=== PATIENT | female | born 1975 | race Caucasian/White ===

== ENCOUNTER → 2018-02-23 | Outpatient (CLI) | payer OTHER ==
[~2018-02-23] MED LIST: ETON68IM SQ; ONDA8TAB98 PO
--- NOTE | 2018-02-26 09:01 | RADIOLOGY IMAGING REPORT ---
FACILITY: [facility] [place] PATIENT NAME: OLAMIDE MCCLURE : [id number] MR: [id number] V: [id number] EXAM DATE: [id number] ORDERING PHYSICIAN: TUNG KENNEY TECHNOLOGIST: Johanny Giordano PROCEDURE:BILATERAL DIGITAL SCREENING MAMMOGRAM WITH CAD ASSISTED INTERPRETATION & 3D TOMOSYNTHESIS COMPARISON:Prior mammograms 08/24/16, 08/17/15. INDICATIONS:SCREENING FINDINGS: Moderately dense heterogeneous fibroglandular tissue is seen throughout the breasts. The parenchymal pattern has remained stable allowing for difference in mammographic technique & patient positioning. There is no evidence of malignant appearing mass, malignant appearing calcifications or other secondary sign of malignancy in either breast. Scattered round calcifications throughout both breasts have remained stable. DIAGNOSTIC CATEGORY 2--BENIGN FINDING. RECOMMENDATIONS: ROUTINE MAMMOGRAM AND CLINICAL EVALUATION. IMPRESSION: BIRADS 2: Benign finding. No significant abnormality is seen. Dictated by: Isabel Lazar M.D. on 02/23/2018 at 15:25 Transcribed by: GABBY on 02/23/2018 at 15:35 Approved by: Isabel Lazar M.D. on 02/26/2018 at 9:00 [facility]
== END ==
LOC: MAMO 01:58
PROVIDERS: ATTEND Obstetrics & Gynecology
DX: Z12.31 Encounter for screening mammogram for malignant neoplasm of breast (principal); R92.1 Mammographic calcification found on diagnostic imaging of breast
CPT/HCPCS: 77063; 77067

== ENCOUNTER → 2019-04-12 | Outpatient (CLI) | payer OTHER ==
--- NOTE | 2019-04-12 14:19 | RADIOLOGY IMAGING REPORT ---
[place] [facility] [place] OLAMIDE MCCLURE : [id number] MR: [id number] V: [id number] EXAM DATE: ORDERING PHYSICIAN: LULÚ WEI TECHNOLOGIST: Isaura Siddiqi PROCEDURE: BILATERAL DIGITAL SCREENING MAMMOGRAM WITH CAD ASSISTED INTERPRETATION & 3D TOMOSYNTHESIS. REASON FOR STUDY: Screening. FAMILY HISTORY OF BREAST CANCER: Maternal grandmother. BREAST PROCEDURES/TREATMENTS: None. COMPARISON: 02/23/18, 08/24/16, 08/17/15. VIEWS OBTAINED: Bilateral 2D & 3D full field CC & MLO projections. BREAST DENSITY: The breasts are heterogeneously dense which can obscure small masses. MAMMOGRAM FINDINGS: The parenchymal pattern has remained stable allowing for difference in mammographic technique & patient positioning. There are scattered small round calcifications throughout both breasts that have remained stable. IMPRESSION: BIRADS 2: Benign finding. DIAGNOSTIC CATEGORY 2--BENIGN FINDING. RECOMMENDATIONS: ROUTINE MAMMOGRAM AND CLINICAL EVALUATION. Dictated by: Isabel Lazar M.D. on 04/12/2019 at 11:55 Transcribed by: GABBY on 04/12/2019 at 13:18 Approved by: Isabel Lazar M.D. on 04/12/2019 at 14:14 [facility]
== END ==
LOC: MAMO 00:39
PROVIDERS: ATTEND Obstetrics & Gynecology
DX: Z12.31 Encounter for screening mammogram for malignant neoplasm of breast (principal)
CPT/HCPCS: 77063; 77067